=== PATIENT | female | born 1995 | race Caucasian/White ===

== ENCOUNTER 2019-12-06 11:28 | Emergency (ER) | payer OTHER, BC ==
[~2019-12-06] VITALS: Ht 162.6 cm; Wt 56.8 kg
[2019-12-06 11:30] VITALS: BP 138/91; TEMP 98.3
[2019-12-06 12:32] VITALS: PULSE 86
== END 2019-12-06 12:33 | disposition home or self-care (01) ==
LOC: COL.ER 11:28
DX: S50.11XA Contusion of right forearm, initial encounter (principal); V43.52XA Car driver injured in collision with other type car in traffic accident, initial encounter; W22.11XA Striking against or struck by driver side automobile airbag, initial encounter

== ENCOUNTER 2019-12-06 18:35 | Emergency (ER) | payer OTHER, BC ==
[~2019-12-06] VITALS: Ht 165.1 cm; Wt 56.8 kg
[2019-12-06 18:42] VITALS: BP 143/92; TEMP 98.2
[2019-12-06 20:21] VITALS: PULSE 79
== END 2019-12-06 20:23 | disposition home or self-care (01) ==
LOC: COL.ER 18:35
DX: S50.11XA Contusion of right forearm, initial encounter (principal); V89.2XXA Person injured in unspecified motor-vehicle accident, traffic, initial encounter; W22.11XA Striking against or struck by driver side automobile airbag, initial encounter; Y92.410 Unspecified street and highway as the place of occurrence of the external cause